=== PATIENT | male | born 1980 | race Caucasian/White ===

== ENCOUNTER 2019-01-21 11:59 | Emergency (ER) | payer MEDICAID ==
[2019-01-21] MEDS: SOD CHLORIDE 0.9% 1,000 ML IV (16:03)
[2019-01-21] MEDS: DIPHENHYDRAMINE 50 MG INJ IV (16:03)
[2019-01-21] MEDS: METOCLOPRAMIDE 10 MG INJ IV (16:03)
[2019-01-21] MEDS: KETOROLAC 30 MG INJ IV (16:03)
== END 2019-01-21 17:12 | disposition home or self-care (01) ==
LOC: FTE 11:59
DX: R51 Headache (principal); R11.0 Nausea
CPT/HCPCS: 96374; 96375; 99284-25